=== PATIENT | female | born 1960 | race Caucasian/White ===

== ENCOUNTER 2021-12-21 17:07 | Emergency (ER) | payer MEDICARE, MEDICAID ==
[2021-12-21] MEDS ORDERED: Haloperidol Lactate 5 MG/ML VIAL ONE (18:19)
[2021-12-21 20:00] LABS: #Basophils 0.1 thou/uL (0.0-0.2); #Eosinphils 0.1 thou/uL (0.0-0.7); #Lymphocytes 1.7 thou/uL (1.20-3.40); #Monocytes 0.3 thou/uL (0.11-0.59); #Neutrophils 2.1 thou/uL (1.40-6.50); %Eosinophils 1.6 % (0.0-10.0); %Lymphocytes 39.5 % (21.0-51.0); %Monocytes 7.2 % (0.0-10.0); %Neutrophils 49.8 % (42.0-75.0); Hemoglobin 14.7 g/dL (12.0-16.0); Mean Corpuscular HGB CONC 33.9 g/dL (32.0-36.0); Mean Corpuscular Hemoglobin 35.6 pg (27.0-31.0); Mean Platelet Volume 8.3 fL (7.4-10.4); Platelet Count 205 10x3/uL (130-400); RBC Distribution Width 13.5 % (11.5-14.5); Red Blood Cell (RBC) Count 4.13 mill/uL (4.20-5.40); White Blood Cell (WBC) Count 4.2 10x3/uL (4.8-10.8)
[2021-12-21 20:13] LABS: PTT 27.3 sec (22.9-36.1); Prothrombin Time 13.3 sec (12.0-14.7)
[2021-12-21 20:19] LABS: ALT (SGPT) 17 U/L (8-55); AST (SGOT) 29 U/L (5-34); Albumin 3.5 g/dL (3.4-4.8); Alkaline Phosphatase 79 U/L (40-110); Anion Gap 13 mmol/L (10-20); BUN (Urea Nitrogen) 10 mg/dL (9.8-20.1); Bilirubin, Total 0.8 mg/dL (0.2-1.2); Calc. Creatinine Clearance 0 mL/min (70-130); Carbon Dioxide 24 mmol/L (23-31); Chloride 107 mmol/L (98-107); Estimated GFR 92; Globulin 3.3 g/dL (2.4-3.5); Glucose 95 mg/dL (80-115); Lipase 10 U/L (8-78); Potassium 4.1 mmol/L (3.5-5.1); Protein, Total 6.8 g/dL (5.8-8.1); Sodium 140 mmol/L (136-145)
[2021-12-21 20:38] LABS: Bilirubin Negative (Negative); Blood, Urine Negative (Negative); Clarity Clear (Clear); Glucose, Urine (Dipstick) Normal (Negative); Ketone, Urine Negative (Negative); Leukocyte Negative Leu/uL (Negative); Nitrite Negative (Negative); Protein, Urine (Dipstick) Negative (Neg-Trace); Specific Gravity, Urine 1.021 (1.002-1.036); Urobilinogen Normal mg/dL (Less than 2)
[2021-12-21] MEDS ORDERED: Fluorescein Opthalmic Strip EA EYE SCH ×2 (22:45→23:00)
[2021-12-21] MEDS ORDERED: Boostrix 0.5 ML (Tdap) VIAL (>/=7 yrs of age) ONE (23:49)
== END 2021-12-22 00:32 | disposition home or self-care (01) ==
LOC: ERS 17:07
DX: S05.01XA Injury of conjunctiva and corneal abrasion without foreign body, right eye, initial encounter (principal); H10.9 Unspecified conjunctivitis; D72.819 Decreased white blood cell count, unspecified; H11.001 Unspecified pterygium of right eye; X58.XXXA Exposure to other specified factors, initial encounter
CPT/HCPCS: 51701; 71045; 80053; 81003; 83605; 83690; 84484; 85025; 85610; 85730; 87040; 87086; 90471; 90715; 93005; 94760; 96372; J1630

== ENCOUNTER 2022-02-10 13:32 | Inpatient (IN) | payer MEDICARE, MEDICAID ==
[2022-02-10] MEDS ORDERED: levETIRAcetam 500 MG/5 ML VIAL ONE ×2 (14:33→21:11)
[2022-02-10] MEDS ORDERED: Midazolam HCl 2 mg/2 ml Vial ONE ×2 (14:36→17:30)
[2022-02-10 15:26] LABS: Bacteria/HPF None Seen HPF (None Seen); Bilirubin Negative (Negative); Blood, Urine 1+ (Negative); Clarity Clear (Clear); Glucose, Urine (Dipstick) Normal (Negative); Ketone, Urine Negative (Negative); Leukocyte Negative Leu/uL (Negative); Nitrite Negative (Negative); Protein, Urine (Dipstick) Negative (Neg-Trace); Specific Gravity, Urine 1.015 (1.002-1.036); Squamous Epithelial None Seen HPF (0-3); Urobilinogen Normal mg/dL (Less than 2); WBC/HPF 0-3 HPF (0-3); pH, Urine 6.5 (5.0-9.0)
[2022-02-10 15:36] LABS: #Eosinphils 0.1 thou/uL (0.0-0.7); #Monocytes 0.3 thou/uL (0.11-0.59); #Neutrophils 2.3 thou/uL (1.40-6.50); %Basophils 0.4 % (0.0-1.0); %Eosinophils 1.4 % (0.0-10.0); %Lymphocytes 26.2 % (21.0-51.0); %Monocytes 8.4 % (0.0-10.0); %Neutrophils 63.5 % (42.0-75.0); Mean Corpuscular HGB CONC 33.2 g/dL (32.0-36.0); Mean Corpuscular Hemoglobin 34.7 pg (27.0-31.0); Mean Platelet Volume 8.5 fL (7.4-10.4); Platelet Count 212 10x3/uL (130-400); RBC Distribution Width 12.8 % (11.5-14.5); Red Blood Cell (RBC) Count 4.33 mill/uL (4.20-5.40); White Blood Cell (WBC) Count 3.6 10x3/uL (4.8-10.8)
[2022-02-10 15:40] LABS: Amphetamine Not Detected (NotDetected); Barbiturates Screen Not Detected (NotDetected); Benzodiazepine Screen Detected (NotDetected); Cocaine Metabolite Screen Not Detected (NotDetected); Methadone Not Detected (NotDetected); Methamphetamine Not Detected (NotDetected); Opiate Screen Not Detected (NotDetected); Oxycodone Screen Not Detected (NotDetected); Phencyclidine (PCP) Not Detected (NotDetected); THC/Cannabinoid Screen Detected (NotDetected); Tricyclic Screen Not Detected (NotDetected)
[2022-02-10 16:00] LABS: Anion Gap 16 mmol/L (10-20); BUN (Urea Nitrogen) 10 mg/dL (9.8-20.1); Calc. Creatinine Clearance 0 mL/min (70-130); Carbon Dioxide 23 mmol/L (23-31); Chloride 108 mmol/L (98-107); Potassium 3.6 mmol/L (3.5-5.1); Sodium 143 mmol/L (136-145)
[2022-02-10 16:01] LABS: ALT (SGPT) 22 U/L (8-55); AST (SGOT) 23 U/L (5-34); Albumin 3.4 g/dL (3.4-4.8); Alkaline Phosphatase 79 U/L (40-110); Bilirubin, Total 0.4 mg/dL (0.2-1.2); CK (CPK) 156 U/L (29-168); Calcium 8.9 mg/dL (7.8-10.44); Estimated GFR 98; Globulin 3.1 g/dL (2.4-3.5); Glucose 93 mg/dL (80-115); Lipase 10 U/L (8-78); Protein, Total 6.5 g/dL (5.8-8.1)
[2022-02-10 16:19] LABS: SARS-CoV-2 NAA Rapid Test Not Detected (NotDetected)
[2022-02-10] MEDS ORDERED: Senokot S 8.6-50 MG TAB PO PRN (18:15)
[2022-02-10] MEDS ORDERED: Ondansetron ODT 4 MG TAB PO PRN (18:15)
[2022-02-10] MEDS ORDERED: Bisacodyl 5 MG TAB PO PRN (18:15)
[2022-02-10] MEDS ORDERED: Lorazepam 2 MG/ML VIAL SLOW IVP PRN (18:15)
[2022-02-10] MEDS ORDERED: Ondansetron PF 4 MG/2 ML Vial IVP PRN (18:15)
[2022-02-10] MEDS ORDERED: Electrolyte Replacement Protocol 1 EACH FS SCH (18:15)
[2022-02-10] MEDS ORDERED: Haloperidol Lactate 5 MG/ML VIAL ONE (20:12)
[2022-02-10] MEDS ORDERED: levETIRAcetam 500 MG TAB PO SCH (21:00)
[2022-02-10 21:16] LABS: Magnesium 2.1 mg/dL (1.6-2.6)
[2022-02-10] MEDS: levETIRAcetam 500 MG/5 ML VIAL SLOW IVP SCH (21:32)
[2022-02-11 06:57] LABS: #Eosinphils 0.1 thou/uL (0.0-0.7); #Lymphocytes 0.8 thou/uL (1.20-3.40); #Monocytes 0.5 thou/uL (0.11-0.59); #Neutrophils 5.2 thou/uL (1.40-6.50); %Basophils 0.7 % (0.0-1.0); %Eosinophils 1.3 % (0.0-10.0); Hemoglobin 13.9 g/dL (12.0-16.0); Mean Corpuscular HGB CONC 34.5 g/dL (32.0-36.0); Mean Platelet Volume 8.5 fL (7.4-10.4); Platelet Count 203 10x3/uL (130-400); RBC Distribution Width 12.9 % (11.5-14.5); Red Blood Cell (RBC) Count 3.87 mill/uL (4.20-5.40); White Blood Cell (WBC) Count 6.6 10x3/uL (4.8-10.8)
[2022-02-11 07:28] LABS: Anion Gap 13 mmol/L (10-20); BUN (Urea Nitrogen) 8 mg/dL (9.8-20.1); Calc. Creatinine Clearance 0 mL/min (70-130); Calcium 8.2 mg/dL (7.8-10.44); Carbon Dioxide 21 mmol/L (23-31); Chloride 111 mmol/L (98-107); Estimated GFR 101; Glucose 113 mg/dL (80-115); Potassium 3.6 mmol/L (3.5-5.1); Sodium 141 mmol/L (136-145)
[2022-02-11] MEDS: levETIRAcetam 500 MG/5 ML VIAL SLOW IVP SCH ×2 (09:59→20:38)
[2022-02-11] MEDS ORDERED: levETIRAcetam 500 MG/5 ML VIAL ONE (10:55)
[2022-02-11] MEDS ORDERED: Acetaminophen 325 MG TAB PO PRN (14:41)
[2022-02-11] MEDS ORDERED: Acetaminophen 650 MG Suppository PR PRN (14:41)
[2022-02-11] MEDS ORDERED: Sodium Chloride 0.9% 500 ML IV SCH (14:45)
[2022-02-11] MEDS ORDERED: Diazepam 10 MG/2 ML SYRINGE IVP PRN ×2 (14:47→19:05)
[2022-02-11] MEDS ORDERED: cefTRIAXone\\ROCEPHIN 1 GM VIAL ONE (15:12)
[2022-02-11] MEDS ORDERED: cefTRIAXone\\ROCEPHIN 1 GM in Sodium Chloride 0.9% 100 ML IVPB SCH ×2 (15:30→16:00)
[2022-02-11] MEDS: NS 0.9% w/ 20 MEQ KCL 1,000 ML/1,000 ML BAG IV SCH (17:58)
[2022-02-11] MEDS ORDERED: GUAIFENESIN SF SOLN 200 MG/10 ML UDCUP PO PRN (21:13)
[2022-02-11] MEDS ORDERED: Benzonatate 100 MG CAP PO PRN (21:13)
[2022-02-11 21:48] LABS: Bilirubin Negative (Negative); Blood, Urine Large (Negative); Glucose, Urine (Dipstick) Negative (Negative); Ketone, Urine Trace mg/dL (Negative); Leukocyte Trace (Negative); Nitrite Negative (Negative); Protein, Urine (Dipstick) 100 mg/dL (Neg-Trace); Specific Gravity, Urine 1.025 (1.005-1.030); Urobilinogen 0.2 mg/dL (Less than 2)
[2022-02-11 21:55] LABS: CAUTI Indications for Culture Acute Hematuria; Clarity Cloudy (Clear)
[2022-02-11 21:56] LABS: Bacteria/HPF 1+ HPF (None Seen); RBC/HPF Greater than 50 HPF (0-3); Squamous Epithelial 0-3 HPF (0-3)
[2022-02-11 21:58] LABS: Urine Culture Reflex Yes Yes
[2022-02-11 22:34] VITALS: BMI 25.8
[2022-02-11] MEDS: ALPRAZolam 0.25 MG TAB PO PRN (23:04)
[2022-02-12] MEDS: NS 0.9% w/ 20 MEQ KCL 1,000 ML/1,000 ML BAG IV SCH (05:24)
[2022-02-12 05:48] LABS: #Eosinphils 0.1 thou/uL (0.0-0.7); #Lymphocytes 0.9 thou/uL (1.20-3.40); #Monocytes 0.4 thou/uL (0.11-0.59); #Neutrophils 3.8 thou/uL (1.40-6.50); %Basophils 0.7 % (0.0-1.0); %Eosinophils 1.3 % (0.0-10.0); %Monocytes 7.1 % (0.0-10.0); %Neutrophils 72.9 % (42.0-75.0); Hemoglobin 13.6 g/dL (12.0-16.0); Mean Corpuscular HGB CONC 33.1 g/dL (32.0-36.0); Mean Corpuscular Hemoglobin 34.8 pg (27.0-31.0); Mean Platelet Volume 8.6 fL (7.4-10.4); Platelet Count 204 10x3/uL (130-400); RBC Distribution Width 12.9 % (11.5-14.5); White Blood Cell (WBC) Count 5.2 10x3/uL (4.8-10.8)
[2022-02-12 06:20] LABS: Anion Gap 9 mmol/L (10-20); BUN (Urea Nitrogen) 5 mg/dL (9.8-20.1); Calc. Creatinine Clearance 100 mL/min (70-130); Calcium 8.3 mg/dL (7.8-10.44); Carbon Dioxide 22 mmol/L (23-31); Chloride 113 mmol/L (98-107); Estimated GFR 104; Glucose 105 mg/dL (80-115); Potassium 3.5 mmol/L (3.5-5.1); Sodium 140 mmol/L (136-145)
[2022-02-12] MEDS ORDERED: Potassium Chloride 20 MEQ TAB PO SCH (08:00)
[2022-02-12] MEDS: levETIRAcetam 500 MG/5 ML VIAL SLOW IVP SCH ×2 (11:42→22:02)
[2022-02-12] MEDS: cefTRIAXone\\ROCEPHIN 1 GM in Sodium Chloride 0.9% 100 ML IVPB SCH (15:48)
[2022-02-12] MEDS: Potassium Chloride 20 MEQ in Lactated Ringer's 1,000 ML IV SCH (17:04)
[2022-02-12] MEDS ORDERED: Ondansetron PF 4 MG/2 ML Vial IVP SCH (21:15)
[2022-02-12] MEDS: Pantoprazole 40 MG VIAL IVP SCH (22:01)
[2022-02-12] MEDS ORDERED: Promethazine HCl 25 MG in Sodium Chloride 0.9% 50 ML IVPB SCH (23:00)
[2022-02-12 23:12] LABS: #Lymphocytes 0.9 thou/uL (1.20-3.40); #Monocytes 0.2 thou/uL (0.11-0.59); %Basophils 0.2 % (0.0-1.0); %Monocytes 5.7 % (0.0-10.0); %Neutrophils 71.1 % (42.0-75.0); Hemoglobin 14.2 g/dL (12.0-16.0); Mean Corpuscular HGB CONC 33.6 g/dL (32.0-36.0); Mean Corpuscular Hemoglobin 34.6 pg (27.0-31.0); Mean Platelet Volume 8.3 fL (7.4-10.4); Platelet Count 212 10x3/uL (130-400); Red Blood Cell (RBC) Count 4.09 mill/uL (4.20-5.40); White Blood Cell (WBC) Count 4.2 10x3/uL (4.8-10.8)
[2022-02-12 23:26] LABS: Lactic Acid 1.2 mmol/L (0.5-2.2)
[2022-02-12 23:31] LABS: Anion Gap 13 mmol/L (10-20); BUN (Urea Nitrogen) Less than 4 mg/dL (9.8-20.1); Calc. Creatinine Clearance 94 mL/min (70-130); Calcium 8.8 mg/dL (7.8-10.44); Carbon Dioxide 23 mmol/L (23-31); Chloride 110 mmol/L (98-107); Estimated GFR 102; Glucose 116 mg/dL (80-115); Potassium 4.1 mmol/L (3.5-5.1); Sodium 142 mmol/L (136-145)
[2022-02-13] MEDS: ALPRAZolam 0.25 MG TAB PO PRN (00:40)
[2022-02-13] MEDS ORDERED: Magnesium 2 GM/50 ML(in water) 2 GM in Premix Bag 1 BAG IVPB SCH (04:30)
[2022-02-13] MEDS ORDERED: Lactated Ringer's 1,000 ML IV SCH (05:00)
[2022-02-13 05:59] LABS: #Eosinphils 0.1 thou/uL (0.0-0.7); #Lymphocytes 1.2 thou/uL (1.20-3.40); #Monocytes 0.3 thou/uL (0.11-0.59); #Neutrophils 2.3 thou/uL (1.40-6.50); %Basophils 0.5 % (0.0-1.0); %Eosinophils 1.4 % (0.0-10.0); %Lymphocytes 31.3 % (21.0-51.0); %Monocytes 7.6 % (0.0-10.0); %Neutrophils 59.3 % (42.0-75.0); Hemoglobin 11.9 g/dL (12.0-16.0); Mean Corpuscular HGB CONC 33.2 g/dL (32.0-36.0); Mean Corpuscular Hemoglobin 34.6 pg (27.0-31.0); Mean Platelet Volume 8.5 fL (7.4-10.4); Platelet Count 178 10x3/uL (130-400); RBC Distribution Width 13.1 % (11.5-14.5); Red Blood Cell (RBC) Count 3.43 mill/uL (4.20-5.40); White Blood Cell (WBC) Count 3.9 10x3/uL (4.8-10.8)
[2022-02-13 06:05] LABS: Lactic Acid 1.3 mmol/L (0.5-2.2)
[2022-02-13 06:07] LABS: Anion Gap 9 mmol/L (10-20); BUN (Urea Nitrogen) Less than 4 mg/dL (9.8-20.1); Calc. Creatinine Clearance 98 mL/min (70-130); Calcium 8.2 mg/dL (7.8-10.44); Carbon Dioxide 23 mmol/L (23-31); Chloride 113 mmol/L (98-107); Estimated GFR 103; Glucose 95 mg/dL (80-115); Potassium 4.1 mmol/L (3.5-5.1); Sodium 141 mmol/L (136-145)
[2022-02-13] MEDS: Potassium Chloride 20 MEQ in Lactated Ringer's 1,000 ML IV SCH (11:02)
[2022-02-13] MEDS: levETIRAcetam 500 MG/5 ML VIAL SLOW IVP SCH ×2 (11:05→20:07)
[2022-02-13] MEDS: cefTRIAXone\\ROCEPHIN 1 GM in Sodium Chloride 0.9% 100 ML IVPB SCH (17:02)
[2022-02-13] MEDS: Pantoprazole 40 MG VIAL IVP SCH (18:26)
[2022-02-13] MEDS ORDERED: Lorazepam 2 MG/ML VIAL SLOW IVP SCH (20:30)
[2022-02-14] MEDS ORDERED: Lorazepam 2 MG/ML VIAL SLOW IVP SCH (04:15)
[2022-02-14] MEDS: DEXTROMETHORPHAN HBR PO SCH ×3 (06:26→09:19)
[2022-02-14] MEDS: QUINIDINE PO SCH ×3 (06:26→09:19)
[2022-02-14] MEDS: levETIRAcetam 500 MG/5 ML VIAL SLOW IVP SCH (09:09)
[2022-02-14 15:59] VITALS: BP 99/79; TEMP 98
== END 2022-02-14 17:45 | disposition home or self-care (01) | DRG 101 ==
LOC: ERS 13:32 → ERHOLD 16:38 → NEURO 02-11 19:39
PROVIDERS: ADMIT Internal Medicine; ATTEND Hospitalist
DX: R56.9 Unspecified convulsions (principal); G91.2 (Idiopathic) normal pressure hydrocephalus; Z20.822 Contact with and (suspected) exposure to COVID-19; G30.9 Alzheimer's disease, unspecified; R31.0 Gross hematuria; F02.80 Dementia in other diseases classified elsewhere, unspecified severity, without behavioral disturbance, psychotic disturbance, mood disturbance, and anxiety; Z87.440 Personal history of urinary (tract) infections; Q90.9 Down syndrome, unspecified; Z74.01 Bed confinement status; Z88.6 Allergy status to analgesic agent; Z88.8 Allergy status to other drugs, medicaments and biological substances; Z79.899 Other long term (current) drug therapy; Z90.49 Acquired absence of other specified parts of digestive tract; Z90.710 Acquired absence of both cervix and uterus
CPT/HCPCS: 36415; 70450; 71045; 74177; 80048; 80053; 80306; 81001; 81003; 81015; 82550; 83605; 83690; 83735; 83880; 84145; 84146; 84443; 84484; 85025; 87040; 87086; 93005; 95712; 95816; 95819; 95957; 96374; 96375; 96376; C9113; J0696; J1630; J1650; J1953; J1956; J2060; J2250; J2405; J2550; J3475; J3480; J3490; J7030; J7120